=== PATIENT | male | born 1945 | race Caucasian/White ===

== ENCOUNTER 2018-02-25 09:11 | Inpatient (IN) | payer MEDICARE, OTHER ==
[2018-02-25 10:20] LABS: ADD MAN DIFF? NO
[2018-02-25] MEDS: ONDANSETRON 4 MG INJ IV (10:20)
[2018-02-25] MEDS: HYDROmorphONE 1 MG/5 ML IV SYRINGE IV (10:20)
[2018-02-25] MEDS: SOD CHLORIDE 0.9% 1,000 ML IV ×2 (10:21→15:33)
[2018-02-25 10:25] LABS: ABNORMAL IP MESSAGE 1; BASOPHILS % 0.7 % (0.0-2.0); EOSINOPHILS # 0.1 10^3/ul (0.0-0.5); EOSINOPHILS % 2.1 % (0.0-7.0); HEMATOCRIT 28.6 % (42.0-52.0); HEMOGLOBIN 9.8 g/dl (14.0-18.0); LYMPHOCYTES # 0.5 10^3/ul (0.8-2.9); LYMPHOCYTES % 7.9 % (15.0-51.0); MEAN CORPUSCULAR HEMOGLOBIN 29.2 pg (29.0-33.0); MEAN CORPUSCULAR HGB CONC 34.3 g/dl (32.0-37.0); MEAN CORPUSCULAR VOLUME 85.1 fl (82.0-101.0); MEAN PLATELET VOLUME 9.2 fl (7.4-10.4); MONOCYTE # 0.5 10^3/ul (0.3-0.9); MONOCYTES % 8.4 % (0.0-11.0); NEUTROPHIL # 4.9 10^3/ul (1.6-7.5); NEUTROPHILS % 80.6 % (39.0-77.0); PLATELET COUNT 212 10^3/UL (140-415); POSITIVE DIFF @See below; RED BLOOD COUNT 3.36 10^6/ul (4.70-6.10); RED CELL DISTRIBUTION WIDTH 12.4 % (11.5-14.5)
[2018-02-25 10:25] LABS: WHITE BLOOD COUNT 6.1 10^3/ul (4.8-10.8)
[2018-02-25 10:55] LABS: ALANINE AMINOTRANSFERASE 18 IU/L (13-69); ALBUMIN 3.3 g/dl (3.3-4.9); ALKALINE PHOSPHATASE 55 IU/L (42-121); ANION GAP 10 (8-16); ASPARTATE AMINO TRANSFERASE 33 IU/L (15-46); BILIRUBIN,INDIRECT 0.2 mg/dl (0-1.1); BILIRUBIN,TOTAL 0.2 mg/dl (0.2-1.3); BLOOD UREA NITROGEN 14 mg/dl (7-20); CARBON DIOXIDE 25 mmol/L (21-31); CHLORIDE 104 mmol/L (97-110); CREATININE 1.04 mg/dl (0.61-1.24); GLUCOSE 128 mg/dl (70-220); POTASSIUM 4.5 mmol/L (3.5-5.1); SODIUM 134 mmol/L (135-144); TOTAL PROTEIN 6.6 g/dl (6.1-8.1)
[2018-02-25 11:11] LABS: FREE T4 (FREE THYROXINE) 1.55 ng/dl (0.78-2.44)
[2018-02-25] MEDS: VANCOMYCIN 1 GM (PMX) 250 ML IVPB (12:27)
[2018-02-25] MEDS: METHYLPREDNISOLONE 125 MG INJ IV (13:20)
[2018-02-25] MEDS: CEFEPIME 1GM/50 ML (PMX) 50 ML IVPB (13:21)
[2018-02-25] MEDS ORDERED: ACETAMINOPHEN 325 MG TAB PO (14:30)
[2018-02-25] MEDS ORDERED: ONDANSETRON 4 MG INJ IV (14:30)
[2018-02-25] MEDS ORDERED: METOCLOPRAMIDE 10 MG INJ IV (15:30)
[2018-02-25] MEDS ORDERED: metFORMIN 500 MG TAB PO (15:30)
[2018-02-25] MEDS ORDERED: SODIUM CHLORIDE 0.9% 1L BAG IV (15:30)
[2018-02-25] MEDS ORDERED: MECLIZINE 25 MG TAB PO (15:30)
[2018-02-25] MEDS ORDERED: NACL 0.9% 3 ML SYG IV (15:30)
[2018-02-25] MEDS: AZITHROMYCIN 500MG/NS (PMX) 250 ML IV (16:33)
[2018-02-25] MEDS: ALBUTEROL/IPRATROPIUM (NEB) 3 ML AMP NEB ×2 (17:00→21:29)
[2018-02-25] MEDS: IPRATROPIUM (NEB) 0.5 MG/2.5 ML AMP NEB (17:00)
[2018-02-25] MEDS ORDERED: IODIXANOL LOCM 100 ML BTL (17:16)
[2018-02-25] MEDS ORDERED: SOD CHLORIDE 0.9% 100 ML (17:16)
[2018-02-25] MEDS: CEFTRIAXONE 1 GM/50 ML (PMX) 50 ML IVPB (19:01)
[2018-02-25] MEDS ORDERED: METHYLPREDNISOLONE 40 MG INJ (20:37)
[2018-02-25] MEDS: TAMSULOSIN (SR) 0.4 MG CAP PO (21:08)
[2018-02-25] MEDS: METHYLPREDNISOLONE 40 MG INJ IV (21:08)
[2018-02-25] MEDS: ATORVASTATIN 20 MG TAB PO (21:08)
[2018-02-26] MEDS: ALBUTEROL/IPRATROPIUM (NEB) 3 ML AMP NEB ×6 (00:29→21:22)
[2018-02-26] MEDS: DEXTROSE 5%-0.45% NACL 1,000 ML IV ×2 (00:43→19:40)
[2018-02-26] MEDS ORDERED: NITROGLYCERIN (SL) 0.4 MG TAB (01:42)
[2018-02-26] MEDS: NITROGLYCERIN (SL) 0.4 MG TAB SL ×3 (01:50→22:03)
[2018-02-26] MEDS ORDERED: morphine 2 MG INJ IV (02:00)
[2018-02-26] MEDS: morphine 2 MG INJ IV ×4 (02:05→21:25)
[2018-02-26] MEDS ORDERED: IPRATROPIUM (NEB) 0.5 MG/2.5 ML AMP NEB (02:30)
[2018-02-26 02:55] LABS: TROPONIN-I 0.758 ng/ml (0.00-0.12)
[2018-02-26] MEDS: ISOSORBIDE MONONITRATE(SR)30 MG TAB PO ×2 (04:00→05:57)
[2018-02-26] MEDS: PANTOPRAZOLE (EC) 40 MG TAB PO ×2 (05:56→18:00)
[2018-02-26] MEDS: METOPROLOL 50 MG TAB PO ×3 (05:56→21:27)
[2018-02-26] MEDS ORDERED: PANTOPRAZOLE (EC) 40 MG TAB PO (06:00)
[2018-02-26] MEDS: ASPIRIN (EC) 81 MG TAB PO ×2 (09:00→14:02)
[2018-02-26] MEDS: FOLIC ACID 1 MG TAB PO (09:00)
[2018-02-26] MEDS: CLOPIDOGREL 75 MG TAB PO ×2 (09:00→14:02)
[2018-02-26] MEDS: METHYLPREDNISOLONE 40 MG INJ IV ×3 (09:00→21:27)
[2018-02-26] MEDS: FERROUS SULFATE (EC) 325 MG TAB PO (09:00)
[2018-02-26 10:20] LABS: ADD MAN DIFF? NO
[2018-02-26 10:21] LABS: WHITE BLOOD COUNT 7.8 10^3/ul (4.8-10.8)
[2018-02-26 10:21] LABS: ABNORMAL IP MESSAGE 1; BASOPHILS % 0.1 % (0.0-2.0); HEMATOCRIT 26.4 % (42.0-52.0); HEMOGLOBIN 8.9 g/dl (14.0-18.0); LYMPHOCYTES # 0.6 10^3/ul (0.8-2.9); LYMPHOCYTES % 7.4 % (15.0-51.0); MEAN CORPUSCULAR HGB CONC 33.7 g/dl (32.0-37.0); MEAN PLATELET VOLUME 9.5 fl (7.4-10.4); MONOCYTE # 0.3 10^3/ul (0.3-0.9); NEUTROPHIL # 6.9 10^3/ul (1.6-7.5); NEUTROPHILS % 87.9 % (39.0-77.0); PLATELET COUNT 218 10^3/UL (140-415); POSITIVE DIFF @See below; RED BLOOD COUNT 3.07 10^6/ul (4.70-6.10); RED CELL DISTRIBUTION WIDTH 12.5 % (11.5-14.5)
[2018-02-26 10:32] LABS: HEMOGLOBIN A1C 5.6 % (0-5.9)
[2018-02-26 10:39] LABS: ALANINE AMINOTRANSFERASE 18 IU/L (13-69); ALBUMIN 3.4 g/dl (3.3-4.9); ALBUMIN/GLOBULIN RATIO 1.06; ALKALINE PHOSPHATASE 49 IU/L (42-121); ANION GAP 10 (8-16); ASPARTATE AMINO TRANSFERASE 27 IU/L (15-46); BILIRUBIN,INDIRECT 0.1 mg/dl (0-1.1); BILIRUBIN,TOTAL 0.1 mg/dl (0.2-1.3); BLOOD UREA NITROGEN 18 mg/dl (7-20); CALCIUM 9.3 mg/dl (8.4-10.2); CARBON DIOXIDE 26 mmol/L (21-31); CHLORIDE 110 mmol/L (97-110); CREATININE 1.04 mg/dl (0.61-1.24); GLUCOSE 151 mg/dl (70-220); POTASSIUM 4.8 mmol/L (3.5-5.1); SODIUM 141 mmol/L (135-144); TOTAL PROTEIN 6.6 g/dl (6.1-8.1)
[2018-02-26 10:41] LABS: INR 1.26; PARTIAL THROMBOPLASTIN TIME 34.3 Sec (25.0-35.0); PT RATIO 1.3
[2018-02-26 10:48] LABS: B-TYPE NATRIURETIC PEPTIDE 3030 PG/ML (0-125)
[2018-02-26] MEDS: LORAZEPAM 2 MG INJ IV (10:50)
[2018-02-26 10:56] LABS: TROPONIN-I 0.828 ng/ml (0.00-0.12)
[2018-02-26 11:10] LABS: THYROID STIMULATING HORMONE 0.777 MIU/L (0.465-4.680)
[2018-02-26 11:34] LABS: INR 1.23; PROTIME 15.7 Sec (11.9-14.9); PT RATIO 1.2
[2018-02-26 11:43] LABS: PARTIAL THROMBOPLASTIN TIME 37.3 Sec (25.0-35.0)
[2018-02-26 13:01] LABS: PLATELET COUNT 218 10^3/UL (140-415)
[2018-02-26] MEDS: DOCUSATE SODIUM 100 MG CAP PO ×2 (14:02→21:26)
[2018-02-26 14:41] LABS: TROPONIN-I 0.646 ng/ml (0.00-0.12)
[2018-02-26] MEDS: CEFTRIAXONE 1 GM/50 ML (PMX) 50 ML IVPB (19:02)
[2018-02-26] MEDS: AZITHROMYCIN 500MG/NS (PMX) 250 ML IV (19:40)
[2018-02-26 19:56] LABS: CREATINE KINASE 55 IU/L (23-200)
[2018-02-26 20:07] LABS: CK INDEX 3.4
[2018-02-26 20:08] LABS: CK-MB 1.87 ng/ml (0.0-2.4); TROPONIN-I 0.557 ng/ml (0.00-0.12)
[2018-02-26] MEDS: GUAIFENESIN/DM 5ML CUP PO (21:26)
[2018-02-26] MEDS: TAMSULOSIN (SR) 0.4 MG CAP PO (21:26)
[2018-02-26] MEDS: ATORVASTATIN 20 MG TAB PO (21:26)
[2018-02-27] MEDS: ALBUTEROL/IPRATROPIUM (NEB) 3 ML AMP NEB ×6 (01:00→21:22)
[2018-02-27] MEDS: PANTOPRAZOLE (EC) 40 MG TAB PO ×2 (06:19→18:18)
[2018-02-27 06:44] LABS: ADD MAN DIFF? NO
[2018-02-27 06:50] LABS: WHITE BLOOD COUNT 9.2 10^3/ul (4.8-10.8)
[2018-02-27 06:50] LABS: ABNORMAL IP MESSAGE 1; BASOPHILS % 0.1 % (0.0-2.0); HEMATOCRIT 26.8 % (42.0-52.0); LYMPHOCYTES # 0.5 10^3/ul (0.8-2.9); LYMPHOCYTES % 5.6 % (15.0-51.0); MEAN CORPUSCULAR HEMOGLOBIN 28.8 pg (29.0-33.0); MEAN CORPUSCULAR HGB CONC 33.6 g/dl (32.0-37.0); MEAN CORPUSCULAR VOLUME 85.9 fl (82.0-101.0); MEAN PLATELET VOLUME 9.6 fl (7.4-10.4); MONOCYTE # 0.2 10^3/ul (0.3-0.9); MONOCYTES % 1.9 % (0.0-11.0); NEUTROPHIL # 8.4 10^3/ul (1.6-7.5); NEUTROPHILS % 91.9 % (39.0-77.0); PLATELET COUNT 202 10^3/UL (140-415); POSITIVE DIFF @See below; RED BLOOD COUNT 3.12 10^6/ul (4.70-6.10); RED CELL DISTRIBUTION WIDTH 12.8 % (11.5-14.5)
[2018-02-27 07:14] LABS: CREATINE KINASE 60 IU/L (23-200)
[2018-02-27 07:18] LABS: ANION GAP 12 (8-16); BLOOD UREA NITROGEN 22 mg/dl (7-20); CALCIUM 9.5 mg/dl (8.4-10.2); CARBON DIOXIDE 25 mmol/L (21-31); CHLORIDE 110 mmol/L (97-110); CREATININE 0.99 mg/dl (0.61-1.24); GLUCOSE 162 mg/dl (70-220); SODIUM 142 mmol/L (135-144)
[2018-02-27 07:19] LABS: CHOL/HDL RATIO 2.8 RATIO; HDL CHOLESTEROL 32 mg/dl (31-75); LDL CHOLESTEROL,CALCULATED 44 mg/dl; TRIGLYCERIDES 75 mg/dl (0-149)
[2018-02-27 07:19] LABS: CHOLESTEROL 91 mg/dl (100-200)
[2018-02-27 07:20] LABS: CK INDEX 3.3
[2018-02-27 07:22] LABS: CK-MB 1.96 ng/ml (0.0-2.4)
[2018-02-27 07:24] LABS: INR 1.24; PROTIME 15.8 Sec (11.9-14.9); PT RATIO 1.2
[2018-02-27 07:25] LABS: PARTIAL THROMBOPLASTIN TIME 32.5 Sec (25.0-35.0)
[2018-02-27] MEDS ORDERED: ASPIRIN (EC) 81 MG TAB PO (09:00)
[2018-02-27] MEDS ORDERED: CLOPIDOGREL 75 MG TAB PO (09:00)
[2018-02-27] MEDS: ASPIRIN (EC) 325 MG TAB PO (09:49)
[2018-02-27] MEDS: ISOSORBIDE MONONITRATE(SR)30 MG TAB PO (09:49)
[2018-02-27] MEDS: DOCUSATE SODIUM 100 MG CAP PO ×2 (09:50→20:52)
[2018-02-27] MEDS: FOLIC ACID 1 MG TAB PO (09:51)
[2018-02-27] MEDS: CLOPIDOGREL 75 MG TAB PO (09:51)
[2018-02-27] MEDS: METOPROLOL 50 MG TAB PO ×2 (09:51→20:53)
[2018-02-27] MEDS: METHYLPREDNISOLONE 40 MG INJ IV ×2 (09:51→20:50)
[2018-02-27] MEDS: FERROUS SULFATE (EC) 325 MG TAB PO (09:51)
[2018-02-27] MEDS: FUROSEMIDE 20 MG INJ IV (09:52)
[2018-02-27] MEDS: CEFTRIAXONE 1 GM/50 ML (PMX) 50 ML IVPB (16:07)
[2018-02-27] MEDS: AZITHROMYCIN 500MG/NS (PMX) 250 ML IV (17:17)
[2018-02-27] MEDS: ATORVASTATIN 80 MG TAB PO (20:52)
[2018-02-27] MEDS: TAMSULOSIN (SR) 0.4 MG CAP PO (20:52)
[2018-02-28] MEDS: ALBUTEROL/IPRATROPIUM (NEB) 3 ML AMP NEB ×6 (01:51→20:39)
[2018-02-28] MEDS: PANTOPRAZOLE (EC) 40 MG TAB PO ×2 (06:30→17:14)
[2018-02-28 07:18] LABS: ADD MAN DIFF? NO
[2018-02-28 07:27] LABS: ABNORMAL IP MESSAGE 1; HEMOGLOBIN 8.7 g/dl (14.0-18.0); LYMPHOCYTES # 0.6 10^3/ul (0.8-2.9); LYMPHOCYTES % 7.3 % (15.0-51.0); MEAN CORPUSCULAR HEMOGLOBIN 28.9 pg (29.0-33.0); MEAN CORPUSCULAR HGB CONC 33.5 g/dl (32.0-37.0); MEAN CORPUSCULAR VOLUME 86.4 fl (82.0-101.0); MEAN PLATELET VOLUME 9.9 fl (7.4-10.4); MONOCYTE # 0.3 10^3/ul (0.3-0.9); MONOCYTES % 3.5 % (0.0-11.0); NEUTROPHIL # 7.1 10^3/ul (1.6-7.5); NEUTROPHILS % 88.5 % (39.0-77.0); PLATELET COUNT 194 10^3/UL (140-415); POSITIVE DIFF @See below; RED BLOOD COUNT 3.01 10^6/ul (4.70-6.10); RED CELL DISTRIBUTION WIDTH 12.5 % (11.5-14.5)
[2018-02-28 07:50] LABS: PHOSPHORUS 4.2 mg/dl (2.5-4.9)
[2018-02-28 07:50] LABS: MAGNESIUM 2.1 mg/dl (1.7-2.5)
[2018-02-28 07:52] LABS: ANION GAP 15 (8-16); BLOOD UREA NITROGEN 24 mg/dl (7-20); CALCIUM 9.1 mg/dl (8.4-10.2); CARBON DIOXIDE 23 mmol/L (21-31); CHLORIDE 107 mmol/L (97-110); CREATININE 1.02 mg/dl (0.61-1.24); GLUCOSE 158 mg/dl (70-220); POTASSIUM 4.4 mmol/L (3.5-5.1); SODIUM 141 mmol/L (135-144)
[2018-02-28 07:59] LABS: INR 1.45; PROTIME 17.9 Sec (11.9-14.9); PT RATIO 1.4
[2018-02-28 08:00] LABS: PARTIAL THROMBOPLASTIN TIME 29.2 Sec (25.0-35.0)
[2018-02-28] MEDS: DOCUSATE SODIUM 100 MG CAP PO ×2 (08:23→21:03)
[2018-02-28] MEDS: METHYLPREDNISOLONE 40 MG INJ IV ×2 (08:23→21:03)
[2018-02-28] MEDS: FUROSEMIDE 20 MG INJ IV (08:23)
[2018-02-28] MEDS: ISOSORBIDE MONONITRATE(SR)30 MG TAB PO (08:24)
[2018-02-28] MEDS: FERROUS SULFATE (EC) 325 MG TAB PO (08:24)
[2018-02-28] MEDS: ASPIRIN (EC) 325 MG TAB PO (08:24)
[2018-02-28] MEDS: FOLIC ACID 1 MG TAB PO (08:24)
[2018-02-28] MEDS: METOPROLOL 50 MG TAB PO ×2 (08:25→21:04)
[2018-02-28] MEDS: CLOPIDOGREL 75 MG TAB PO (08:25)
[2018-02-28] MEDS: ACETYLCYSTEINE 20% 4 ML VIAL NEB ×3 (13:11→20:39)
[2018-02-28] MEDS: ACETAMINOPHEN 325 MG TAB PO (16:50)
[2018-02-28] MEDS: AZITHROMYCIN 500MG/NS (PMX) 250 ML IV (16:50)
[2018-02-28] MEDS: CEFTRIAXONE 1 GM/50 ML (PMX) 50 ML IVPB (16:50)
[2018-02-28] MEDS: TAMSULOSIN (SR) 0.4 MG CAP PO (21:03)
[2018-02-28] MEDS: ATORVASTATIN 80 MG TAB PO (21:03)
[2018-02-28] MEDS: ZOLPIDEM 5 MG TAB PO (21:06)
[2018-03-01] MEDS: ALBUTEROL/IPRATROPIUM (NEB) 3 ML AMP NEB ×6 (01:00→21:24)
[2018-03-01] MEDS: ACETYLCYSTEINE 20% 4 ML VIAL NEB ×5 (01:00→16:37)
[2018-03-01] MEDS: morphine 2 MG INJ IV (02:03)
[2018-03-01] MEDS: NITROGLYCERIN (SL) 0.4 MG TAB SL ×3 (02:53→03:06)
[2018-03-01] MEDS: LIDOCAINE/MYLANTA 40 ML BTL PO (06:10)
[2018-03-01] MEDS: PANTOPRAZOLE (EC) 40 MG TAB PO ×2 (06:10→18:02)
[2018-03-01 08:11] LABS: ADD MAN DIFF? NO
[2018-03-01 08:18] LABS: ABNORMAL IP MESSAGE 1; HEMATOCRIT 27.5 % (42.0-52.0); HEMOGLOBIN 9.5 g/dl (14.0-18.0); LYMPHOCYTES # 0.4 10^3/ul (0.8-2.9); LYMPHOCYTES % 5.6 % (15.0-51.0); MEAN CORPUSCULAR HEMOGLOBIN 29.1 pg (29.0-33.0); MEAN CORPUSCULAR HGB CONC 34.5 g/dl (32.0-37.0); MEAN CORPUSCULAR VOLUME 84.4 fl (82.0-101.0); MEAN PLATELET VOLUME 9.9 fl (7.4-10.4); MONOCYTE # 0.5 10^3/ul (0.3-0.9); MONOCYTES % 6.5 % (0.0-11.0); NEUTROPHIL # 6.7 10^3/ul (1.6-7.5); NUCLEATED RED BLOOD CELLS% 0.3 /100WBC (0.0-0.0); PLATELET COUNT 160 10^3/UL (140-415); POSITIVE DIFF @See below; RED BLOOD COUNT 3.26 10^6/ul (4.70-6.10); RED CELL DISTRIBUTION WIDTH 12.5 % (11.5-14.5)
[2018-03-01 08:18] LABS: WHITE BLOOD COUNT 7.7 10^3/ul (4.8-10.8)
[2018-03-01] MEDS: FOLIC ACID 1 MG TAB PO (08:18)
[2018-03-01] MEDS: FERROUS SULFATE (EC) 325 MG TAB PO (08:18)
[2018-03-01] MEDS: ASPIRIN (EC) 325 MG TAB PO (08:18)
[2018-03-01] MEDS: DOCUSATE SODIUM 100 MG CAP PO ×2 (08:18→22:37)
[2018-03-01] MEDS: METOPROLOL 50 MG TAB PO ×2 (08:18→22:36)
[2018-03-01] MEDS: CLOPIDOGREL 75 MG TAB PO (08:18)
[2018-03-01] MEDS: ISOSORBIDE MONONITRATE(SR)30 MG TAB PO (08:19)
[2018-03-01] MEDS: FUROSEMIDE 20 MG INJ IV (08:19)
[2018-03-01] MEDS: METHYLPREDNISOLONE 40 MG INJ IV (08:19)
[2018-03-01] MEDS: HYDROmorphONE 0.5 MG/0.5 ML SYG IV (08:20)
[2018-03-01 08:36] LABS: ANION GAP 14 (8-16); BLOOD UREA NITROGEN 27 mg/dl (7-20); CALCIUM 8.9 mg/dl (8.4-10.2); CARBON DIOXIDE 25 mmol/L (21-31); CHLORIDE 105 mmol/L (97-110); CREATININE 0.99 mg/dl (0.61-1.24); GLUCOSE 170 mg/dl (70-220); POTASSIUM 4.2 mmol/L (3.5-5.1); SODIUM 140 mmol/L (135-144)
[2018-03-01 08:37] LABS: CREATINE KINASE 26 IU/L (23-200); INR 1.76; PARTIAL THROMBOPLASTIN TIME 34.2 Sec (25.0-35.0); PROTIME 20.9 Sec (11.9-14.9); PT RATIO 1.6
[2018-03-01 08:48] LABS: CK INDEX 4.6; CK-MB 1.19 ng/ml (0.0-2.4)
[2018-03-01 08:50] LABS: TROPONIN-I 0.411 ng/ml (0.00-0.12)
[2018-03-01] MEDS: RANOLAZINE (SR) 500 MG TAB PO ×2 (12:58→22:37)
[2018-03-01] MEDS: CEFTRIAXONE 1 GM/50 ML (PMX) 50 ML IVPB (18:03)
[2018-03-01] MEDS: ATORVASTATIN 80 MG TAB PO (22:37)
[2018-03-01] MEDS: TAMSULOSIN (SR) 0.4 MG CAP PO (22:37)
[2018-03-01] MEDS: PHYTONADIONE 5 MG in DEXTROSE 5% 50 ML IVPB (22:38)
[2018-03-02] MEDS: ALBUTEROL/IPRATROPIUM (NEB) 3 ML AMP NEB ×6 (01:00→20:09)
[2018-03-02] MEDS: PANTOPRAZOLE (EC) 40 MG TAB PO ×2 (05:04→17:38)
[2018-03-02] MEDS: ACETAMINOPHEN 325 MG TAB PO ×2 (05:11→18:18)
[2018-03-02 07:11] LABS: ADD MAN DIFF? NO
[2018-03-02] MEDS: HYDROmorphONE 0.5 MG/0.5 ML SYG IV (07:18)
[2018-03-02 07:24] LABS: WHITE BLOOD COUNT 8.3 10^3/ul (4.8-10.8)
[2018-03-02 07:24] LABS: BASOPHILS % 0.1 % (0.0-2.0); EOSINOPHILS # 0.2 10^3/ul (0.0-0.5); HEMATOCRIT 27.4 % (42.0-52.0); HEMOGLOBIN 9.5 g/dl (14.0-18.0); LYMPHOCYTES # 0.8 10^3/ul (0.8-2.9); LYMPHOCYTES % 9.3 % (15.0-51.0); MEAN CORPUSCULAR HEMOGLOBIN 29.1 pg (29.0-33.0); MEAN CORPUSCULAR HGB CONC 34.7 g/dl (32.0-37.0); MEAN PLATELET VOLUME 9.8 fl (7.4-10.4); MONOCYTE # 0.8 10^3/ul (0.3-0.9); MONOCYTES % 9.9 % (0.0-11.0); NEUTROPHIL # 6.5 10^3/ul (1.6-7.5); NEUTROPHILS % 78.1 % (39.0-77.0); PLATELET COUNT 133 10^3/UL (140-415); RED BLOOD COUNT 3.26 10^6/ul (4.70-6.10); RED CELL DISTRIBUTION WIDTH 12.6 % (11.5-14.5)
[2018-03-02 07:30] LABS: INR 2.15; PROTIME 24.5 Sec (11.9-14.9); PT RATIO 1.9
[2018-03-02 07:31] LABS: PARTIAL THROMBOPLASTIN TIME 41.1 Sec (25.0-35.0)
[2018-03-02 07:48] LABS: ANION GAP 11 (8-16); BLOOD UREA NITROGEN 29 mg/dl (7-20); CARBON DIOXIDE 28 mmol/L (21-31); CHLORIDE 105 mmol/L (97-110); CREATININE 1.08 mg/dl (0.61-1.24); GLUCOSE 109 mg/dl (70-220); POTASSIUM 4.3 mmol/L (3.5-5.1); SODIUM 140 mmol/L (135-144)
[2018-03-02 07:50] LABS: MAGNESIUM 2.1 mg/dl (1.7-2.5)
[2018-03-02 07:50] LABS: PHOSPHORUS 3.6 mg/dl (2.5-4.9)
[2018-03-02 07:53] LABS: CREATINE KINASE 22 IU/L (23-200)
[2018-03-02 07:59] LABS: CK INDEX 5.6
[2018-03-02 08:12] LABS: CK-MB 1.24 ng/ml (0.0-2.4); TROPONIN-I 0.522 ng/ml (0.00-0.12)
[2018-03-02] MEDS: FERROUS SULFATE (EC) 325 MG TAB PO (09:22)
[2018-03-02] MEDS: FOLIC ACID 1 MG TAB PO (09:22)
[2018-03-02] MEDS: CLOPIDOGREL 75 MG TAB PO (09:22)
[2018-03-02] MEDS: ASPIRIN (EC) 325 MG TAB PO (09:22)
[2018-03-02] MEDS: RANOLAZINE (SR) 500 MG TAB PO ×2 (09:22→21:21)
[2018-03-02] MEDS: DOCUSATE SODIUM 100 MG CAP PO ×2 (09:22→21:20)
[2018-03-02] MEDS: METOPROLOL 50 MG TAB PO ×2 (09:22→21:21)
[2018-03-02] MEDS: ISOSORBIDE MONONITRATE(SR)30 MG TAB PO (09:23)
[2018-03-02] MEDS: FUROSEMIDE 20 MG INJ IV (09:23)
[2018-03-02] MEDS: METHYLPREDNISOLONE 40 MG INJ IV (09:23)
[2018-03-02] MEDS: CEFTRIAXONE 1 GM/50 ML (PMX) 50 ML IVPB (17:38)
[2018-03-02] MEDS ORDERED: NITROGLYCERIN 2% 1 GM OINT PKT TD (18:00)
[2018-03-02] MEDS: NITROGLYCERIN (SL) 0.4 MG TAB SL (18:18)
[2018-03-02] MEDS: NITROGLYCERIN 0.2 MG/HR PATCH TRANSDERM (18:57)
[2018-03-02 19:56] LABS: CK-MB 2.94 ng/ml (0.0-2.4)
[2018-03-02 20:34] LABS: CREATINE KINASE 33 IU/L (23-200)
[2018-03-02 20:47] LABS: CK INDEX 8.5
[2018-03-02 20:53] LABS: CK-MB 2.82 ng/ml (0.0-2.4)
[2018-03-02] MEDS: TAMSULOSIN (SR) 0.4 MG CAP PO (21:20)
[2018-03-02] MEDS: ATORVASTATIN 80 MG TAB PO (21:20)
[2018-03-02] MEDS: ALPRAZOLAM 0.25 MG TAB PO (21:48)
[2018-03-03] MEDS: ALBUTEROL/IPRATROPIUM (NEB) 3 ML AMP NEB ×6 (01:31→21:18)
[2018-03-03] MEDS: ACETAMINOPHEN 325 MG TAB PO ×2 (04:28→09:11)
[2018-03-03] MEDS: PANTOPRAZOLE (EC) 40 MG TAB PO ×2 (06:51→17:06)
[2018-03-03 08:40] LABS: ADD MAN DIFF? NO
[2018-03-03 08:45] LABS: ABNORMAL IP MESSAGE 1; EOSINOPHILS # 0.2 10^3/ul (0.0-0.5); EOSINOPHILS % 1.8 % (0.0-7.0); HEMATOCRIT 28.1 % (42.0-52.0); HEMOGLOBIN 9.7 g/dl (14.0-18.0); LYMPHOCYTES # 0.8 10^3/ul (0.8-2.9); LYMPHOCYTES % 9.9 % (15.0-51.0); MEAN CORPUSCULAR HEMOGLOBIN 28.9 pg (29.0-33.0); MEAN CORPUSCULAR HGB CONC 34.5 g/dl (32.0-37.0); MEAN CORPUSCULAR VOLUME 83.6 fl (82.0-101.0); MEAN PLATELET VOLUME 9.7 fl (7.4-10.4); MONOCYTE # 0.8 10^3/ul (0.3-0.9); MONOCYTES % 9.8 % (0.0-11.0); NEUTROPHIL # 6.6 10^3/ul (1.6-7.5); NEUTROPHILS % 78.1 % (39.0-77.0); PLATELET COUNT 84 10^3/UL (140-415); POSITIVE DIFF @See below; RED BLOOD COUNT 3.36 10^6/ul (4.70-6.10); RED CELL DISTRIBUTION WIDTH 12.3 % (11.5-14.5)
[2018-03-03 08:45] LABS: WHITE BLOOD COUNT 8.4 10^3/ul (4.8-10.8)
[2018-03-03] MEDS ORDERED: NITROGLYCERIN 0.2 MG/HR PATCH TRANSDERM (09:00)
[2018-03-03 09:01] LABS: CHLORIDE 103 mmol/L (97-110)
[2018-03-03 09:03] LABS: ANION GAP 8 (8-16); BLOOD UREA NITROGEN 29 mg/dl (7-20); CALCIUM 8.7 mg/dl (8.4-10.2); CARBON DIOXIDE 29 mmol/L (21-31); CREATININE 1.08 mg/dl (0.61-1.24); GLUCOSE 122 mg/dl (70-220); POTASSIUM 3.7 mmol/L (3.5-5.1); SODIUM 136 mmol/L (135-144)
[2018-03-03] MEDS: METHYLPREDNISOLONE 40 MG INJ IV (09:08)
[2018-03-03] MEDS: FUROSEMIDE 20 MG INJ IV (09:08)
[2018-03-03] MEDS: FERROUS SULFATE (EC) 325 MG TAB PO (09:10)
[2018-03-03] MEDS: ASPIRIN (EC) 325 MG TAB PO (09:10)
[2018-03-03] MEDS: DOCUSATE SODIUM 100 MG CAP PO ×3 (09:10→20:57)
[2018-03-03] MEDS: FOLIC ACID 1 MG TAB PO (09:10)
[2018-03-03] MEDS: CLOPIDOGREL 75 MG TAB PO (09:10)
[2018-03-03] MEDS: MAGNESIUM HYDROXIDE 30ML CUP PO ×2 (09:11→22:37)
[2018-03-03] MEDS: RANOLAZINE (SR) 500 MG TAB PO ×2 (09:11→21:42)
[2018-03-03] MEDS: METOPROLOL 50 MG TAB PO ×2 (09:12→20:57)
[2018-03-03] MEDS: NITROGLYCERIN 0.2 MG/HR PATCH TRANSDERM (09:28)
[2018-03-03 16:26] LABS: ADD MAN DIFF? NO
[2018-03-03 16:28] LABS: ABNORMAL IP MESSAGE 1; EOSINOPHILS % 0.1 % (0.0-7.0); HEMATOCRIT 28.3 % (42.0-52.0); HEMOGLOBIN 9.8 g/dl (14.0-18.0); LYMPHOCYTES # 0.7 10^3/ul (0.8-2.9); LYMPHOCYTES % 9.1 % (15.0-51.0); MEAN CORPUSCULAR HEMOGLOBIN 29.1 pg (29.0-33.0); MEAN CORPUSCULAR HGB CONC 34.6 g/dl (32.0-37.0); MONOCYTE # 0.2 10^3/ul (0.3-0.9); MONOCYTES % 2.5 % (0.0-11.0); NEUTROPHIL # 6.4 10^3/ul (1.6-7.5); NEUTROPHILS % 87.7 % (39.0-77.0); PLATELET COUNT 80 10^3/UL (140-415); POSITIVE DIFF @See below; RED BLOOD COUNT 3.37 10^6/ul (4.70-6.10); RED CELL DISTRIBUTION WIDTH 12.5 % (11.5-14.5)
[2018-03-03 16:28] LABS: WHITE BLOOD COUNT 7.2 10^3/ul (4.8-10.8)
[2018-03-03 16:50] LABS: ANION GAP 9 (8-16); BLOOD UREA NITROGEN 31 mg/dl (7-20); CALCIUM 8.5 mg/dl (8.4-10.2); CARBON DIOXIDE 29 mmol/L (21-31); CHLORIDE 98 mmol/L (97-110); CREATININE 1.17 mg/dl (0.61-1.24); GLUCOSE 224 mg/dl (70-220); POTASSIUM 4.4 mmol/L (3.5-5.1); SODIUM 132 mmol/L (135-144)
[2018-03-03] MEDS: CEFTRIAXONE 1 GM/50 ML (PMX) 50 ML IVPB (17:05)
[2018-03-03] MEDS: TAMSULOSIN (SR) 0.4 MG CAP PO (20:58)
[2018-03-03] MEDS: ATORVASTATIN 80 MG TAB PO (20:58)
[2018-03-03] MEDS: ALPRAZOLAM 0.25 MG TAB PO (22:38)
[2018-03-04] MEDS: ALBUTEROL/IPRATROPIUM (NEB) 3 ML AMP NEB ×7 (00:48→20:35)
[2018-03-04] MEDS: OXYCODONE/ACETAMINOPHEN (5/325) TAB PO (01:53)
[2018-03-04] MEDS: ZOLPIDEM 5 MG TAB PO (02:36)
[2018-03-04] MEDS: NITROGLYCERIN (SL) 0.4 MG TAB SL ×3 (03:27→04:01)
[2018-03-04] MEDS: morphine 2 MG INJ IV ×2 (04:01→05:11)
[2018-03-04 04:56] LABS: ADD MAN DIFF? NO
[2018-03-04 04:59] LABS: ABNORMAL IP MESSAGE 1; BASOPHILS % 0.1 % (0.0-2.0); EOSINOPHILS # 0.1 10^3/ul (0.0-0.5); EOSINOPHILS % 1.2 % (0.0-7.0); HEMATOCRIT 28.3 % (42.0-52.0); HEMOGLOBIN 9.7 g/dl (14.0-18.0); LYMPHOCYTES % 10.7 % (15.0-51.0); MEAN CORPUSCULAR HEMOGLOBIN 28.5 pg (29.0-33.0); MEAN CORPUSCULAR HGB CONC 34.3 g/dl (32.0-37.0); MEAN CORPUSCULAR VOLUME 83.2 fl (82.0-101.0); MEAN PLATELET VOLUME 10.6 fl (7.4-10.4); MONOCYTE # 0.9 10^3/ul (0.3-0.9); MONOCYTES % 10.1 % (0.0-11.0); NEUTROPHIL # 7.2 10^3/ul (1.6-7.5); NEUTROPHILS % 77.5 % (39.0-77.0); PLATELET COUNT 86 10^3/UL (140-415); POSITIVE DIFF @See below; RED CELL DISTRIBUTION WIDTH 12.5 % (11.5-14.5)
[2018-03-04 04:59] LABS: WHITE BLOOD COUNT 9.3 10^3/ul (4.8-10.8)
[2018-03-04 05:22] LABS: ANION GAP 8 (8-16); BLOOD UREA NITROGEN 32 mg/dl (7-20); CALCIUM 8.7 mg/dl (8.4-10.2); CARBON DIOXIDE 31 mmol/L (21-31); CHLORIDE 103 mmol/L (97-110); CREATININE 1.12 mg/dl (0.61-1.24); GLUCOSE 132 mg/dl (70-220); POTASSIUM 3.6 mmol/L (3.5-5.1); SODIUM 138 mmol/L (135-144)
[2018-03-04] MEDS: PANTOPRAZOLE (EC) 40 MG TAB PO ×2 (06:11→17:32)
[2018-03-04] MEDS: FUROSEMIDE 20 MG INJ IV (08:37)
[2018-03-04] MEDS: METHYLPREDNISOLONE 40 MG INJ IV (08:37)
[2018-03-04] MEDS: NITROGLYCERIN 0.2 MG/HR PATCH TRANSDERM (08:38)
[2018-03-04] MEDS: FERROUS SULFATE (EC) 325 MG TAB PO (09:00)
[2018-03-04] MEDS: DOCUSATE SODIUM 100 MG CAP PO ×2 (09:00→20:27)
[2018-03-04] MEDS: CLOPIDOGREL 75 MG TAB PO (09:00)
[2018-03-04] MEDS: RANOLAZINE (SR) 500 MG TAB PO ×2 (09:00→20:26)
[2018-03-04] MEDS ORDERED: ASPIRIN (EC) 81 MG TAB PO (09:00)
[2018-03-04] MEDS: METOPROLOL 50 MG TAB PO ×2 (09:00→20:55)
[2018-03-04] MEDS: FOLIC ACID 1 MG TAB PO (09:00)
[2018-03-04] MEDS: SOD CHLORIDE 0.9% 1,000 ML IV (12:21)
[2018-03-04] MEDS ORDERED: MIDAZOLAM 1 MG/ML 2 ML INJ (13:02)
[2018-03-04] MEDS ORDERED: FENTAnyl 50 MCG/ML VIAL (13:02)
[2018-03-04] MEDS: ISOSORBIDE MONONITRATE(SR)30 MG TAB PO (13:30)
[2018-03-04] MEDS: LIDOCAINE 4% SOLUTION 50 ML BTL MT (13:47)
[2018-03-04] MEDS: FENTAnyl 50 MCG/ML VIAL IV (13:48)
[2018-03-04] MEDS: MIDAZOLAM 1 MG/ML 2 ML INJ IV ×2 (13:49→13:55)
[2018-03-04] MEDS: CEFTRIAXONE 1 GM/50 ML (PMX) 50 ML IVPB (17:32)
[2018-03-04] MEDS: TAMSULOSIN (SR) 0.4 MG CAP PO (20:26)
[2018-03-04] MEDS: ATORVASTATIN 80 MG TAB PO (20:26)
[2018-03-04] MEDS: ALPRAZOLAM 0.25 MG TAB PO (20:27)
[2018-03-04] MEDS: APIXABAN 5 MG TABLET PO (20:27)
[2018-03-05] MEDS: ALBUTEROL/IPRATROPIUM (NEB) 3 ML AMP NEB ×6 (00:35→20:14)
[2018-03-05] MEDS: PANTOPRAZOLE (EC) 40 MG TAB PO ×2 (05:47→18:29)
[2018-03-05] MEDS: SOD CHLORIDE 0.9% 1,000 ML IV (05:47)
[2018-03-05 06:28] LABS: ADD MAN DIFF? NO
[2018-03-05 06:39] LABS: WHITE BLOOD COUNT 8.7 10^3/ul (4.8-10.8)
[2018-03-05 06:39] LABS: ABNORMAL IP MESSAGE 1; BASOPHILS % 0.2 % (0.0-2.0); EOSINOPHILS # 0.2 10^3/ul (0.0-0.5); EOSINOPHILS % 2.2 % (0.0-7.0); HEMATOCRIT 28.1 % (42.0-52.0); HEMOGLOBIN 9.6 g/dl (14.0-18.0); LYMPHOCYTES # 0.9 10^3/ul (0.8-2.9); LYMPHOCYTES % 10.5 % (15.0-51.0); MEAN CORPUSCULAR HEMOGLOBIN 29.3 pg (29.0-33.0); MEAN CORPUSCULAR HGB CONC 34.2 g/dl (32.0-37.0); MEAN CORPUSCULAR VOLUME 85.7 fl (82.0-101.0); MEAN PLATELET VOLUME 11.1 fl (7.4-10.4); MONOCYTE # 0.9 10^3/ul (0.3-0.9); MONOCYTES % 10.7 % (0.0-11.0); NEUTROPHIL # 6.6 10^3/ul (1.6-7.5); NEUTROPHILS % 75.8 % (39.0-77.0); PLATELET COUNT 70 10^3/UL (140-415); POSITIVE DIFF @See below; RED BLOOD COUNT 3.28 10^6/ul (4.70-6.10); RED CELL DISTRIBUTION WIDTH 12.9 % (11.5-14.5)
[2018-03-05 07:10] LABS: ALANINE AMINOTRANSFERASE 21 IU/L (13-69); ALBUMIN 3.3 g/dl (3.3-4.9); ALKALINE PHOSPHATASE 48 IU/L (42-121); ANION GAP 14 (8-16); ASPARTATE AMINO TRANSFERASE 49 IU/L (15-46); BILIRUBIN,INDIRECT 0.2 mg/dl (0-1.1); BILIRUBIN,TOTAL 0.2 mg/dl (0.2-1.3); BLOOD UREA NITROGEN 27 mg/dl (7-20); CALCIUM 8.6 mg/dl (8.4-10.2); CARBON DIOXIDE 27 mmol/L (21-31); CHLORIDE 102 mmol/L (97-110); CREATININE 1.16 mg/dl (0.61-1.24); GLUCOSE 134 mg/dl (70-220); POTASSIUM 3.7 mmol/L (3.5-5.1); SODIUM 139 mmol/L (135-144); TOTAL PROTEIN 6.3 g/dl (6.1-8.1)
[2018-03-05] MEDS: METHYLPREDNISOLONE 40 MG INJ IV (09:01)
[2018-03-05] MEDS: DOCUSATE SODIUM 100 MG CAP PO ×2 (09:02→20:39)
[2018-03-05] MEDS: RANOLAZINE (SR) 500 MG TAB PO ×2 (09:02→22:20)
[2018-03-05] MEDS: FUROSEMIDE 20 MG INJ IV (09:02)
[2018-03-05] MEDS: FOLIC ACID 1 MG TAB PO (09:02)
[2018-03-05] MEDS: FERROUS SULFATE (EC) 325 MG TAB PO (09:02)
[2018-03-05] MEDS: ISOSORBIDE MONONITRATE(SR)30 MG TAB PO (09:03)
[2018-03-05] MEDS: NITROGLYCERIN 0.2 MG/HR PATCH TRANSDERM (09:03)
[2018-03-05] MEDS: METOPROLOL 50 MG TAB PO ×2 (09:04→20:39)
[2018-03-05 10:31] LABS: HEMATOCRIT 31.4 % (42.0-52.0); HEMOGLOBIN 10.6 g/dl (14.0-18.0)
[2018-03-05 10:59] LABS: INR 1.77; PT RATIO 1.6
[2018-03-05] MEDS: BISACODYL 10 MG SUPP PR (12:36)
[2018-03-05] MEDS: FAMOTIDINE 20 MG TAB PO ×2 (13:02→20:39)
[2018-03-05 13:20] LABS: LACTATE DEHYDROGENASE 1775 IU/L (313-618)
[2018-03-05] MEDS ORDERED: GLUCOSE GEL 15 GRAM TUBE BUCCAL (13:30)
[2018-03-05] MEDS ORDERED: DEXTROSE 50% 50 ML SYRINGE IV ×2 (13:30)
[2018-03-05] MEDS ORDERED: GLUCAGON 1 MG INJ IM (13:30)
[2018-03-05] MEDS ORDERED: GLUCOSE GEL 15 GRAM TUBE PO ×2 (13:30)
[2018-03-05] MEDS: NA PHOSPHATE/BIPHOS 133 ML ENEMA PR (14:00)
[2018-03-05] MEDS: morphine 2 MG INJ IV (16:46)
[2018-03-05] MEDS: INSULIN ASPART [NOVOLOG] 3 ML PEN SC ×2 (17:20→20:49)
[2018-03-05] MEDS: ACETAMINOPHEN 325 MG TAB PO (19:41)
[2018-03-05] MEDS: OXYCODONE/ACETAMINOPHEN (5/325) TAB PO (20:38)
[2018-03-05] MEDS: ATORVASTATIN 80 MG TAB PO (20:39)
[2018-03-05] MEDS: TAMSULOSIN (SR) 0.4 MG CAP PO (20:40)
[2018-03-05] MEDS: APIXABAN 5 MG TABLET PO (20:40)
[2018-03-05] MEDS ORDERED: HYDROmorphONE 0.5 MG/0.5 ML SYG IV (22:00)
[2018-03-05] MEDS: ALPRAZOLAM 0.25 MG TAB PO (22:36)
[2018-03-06] MEDS: ZOLPIDEM 5 MG TAB PO ×2 (00:35→20:58)
[2018-03-06] MEDS: ALBUTEROL/IPRATROPIUM (NEB) 3 ML AMP NEB ×6 (01:02→20:42)
[2018-03-06 05:18] LABS: ADD MAN DIFF? NO
[2018-03-06 05:20] LABS: WHITE BLOOD COUNT 9.5 10^3/ul (4.8-10.8)
[2018-03-06 05:20] LABS: ABNORMAL IP MESSAGE 1; BASOPHILS % 0.1 % (0.0-2.0); EOSINOPHILS # 0.2 10^3/ul (0.0-0.5); HEMATOCRIT 28.7 % (42.0-52.0); HEMOGLOBIN 9.7 g/dl (14.0-18.0); MEAN CORPUSCULAR HEMOGLOBIN 28.7 pg (29.0-33.0); MEAN CORPUSCULAR HGB CONC 33.8 g/dl (32.0-37.0); MEAN CORPUSCULAR VOLUME 84.9 fl (82.0-101.0); MONOCYTE # 1.1 10^3/ul (0.3-0.9); MONOCYTES % 11.6 % (0.0-11.0); NEUTROPHIL # 7.1 10^3/ul (1.6-7.5); NEUTROPHILS % 74.8 % (39.0-77.0); PLATELET COUNT 58 10^3/UL (140-415); POSITIVE DIFF @See below; RED BLOOD COUNT 3.38 10^6/ul (4.70-6.10); RED CELL DISTRIBUTION WIDTH 13.1 % (11.5-14.5)
[2018-03-06 05:37] LABS: MAGNESIUM 2.2 mg/dl (1.7-2.5)
[2018-03-06 05:37] LABS: PHOSPHORUS 3.8 mg/dl (2.5-4.9)
[2018-03-06] MEDS: PANTOPRAZOLE (EC) 40 MG TAB PO (05:50)
[2018-03-06 05:56] LABS: ALANINE AMINOTRANSFERASE 28 IU/L (13-69); ALBUMIN 3.2 g/dl (3.3-4.9); ALBUMIN/GLOBULIN RATIO 1.03; ALKALINE PHOSPHATASE 48 IU/L (42-121); ANION GAP 9 (8-16); ASPARTATE AMINO TRANSFERASE 43 IU/L (15-46); BILIRUBIN,INDIRECT 0.3 mg/dl (0-1.1); BILIRUBIN,TOTAL 0.3 mg/dl (0.2-1.3); BLOOD UREA NITROGEN 26 mg/dl (7-20); CARBON DIOXIDE 29 mmol/L (21-31); CHLORIDE 102 mmol/L (97-110); CREATININE 1.09 mg/dl (0.61-1.24); GLUCOSE 123 mg/dl (70-220); POTASSIUM 4.3 mmol/L (3.5-5.1); SODIUM 136 mmol/L (135-144); TOTAL PROTEIN 6.3 g/dl (6.1-8.1)
[2018-03-06] MEDS: APIXABAN 5 MG TABLET PO (08:50)
[2018-03-06] MEDS ORDERED: NPH, HUMAN INSULIN ISOPHANE 3ML VIAL SC (09:00)
[2018-03-06] MEDS ORDERED: HEPARIN 1000 UNITS/ML 10 ML INJ IV (09:00)
[2018-03-06 09:45] LABS: CREATINE KINASE 34 IU/L (23-200)
[2018-03-06 09:52] LABS: CK-MB 1.01 ng/ml (0.0-2.4)
[2018-03-06] MEDS: RANOLAZINE (SR) 500 MG TAB PO ×2 (11:00→20:57)
[2018-03-06] MEDS: FUROSEMIDE 20 MG INJ IV (11:00)
[2018-03-06] MEDS: DOCUSATE SODIUM 100 MG CAP PO ×2 (11:00→20:57)
[2018-03-06] MEDS: METOPROLOL 50 MG TAB PO ×2 (11:00→20:57)
[2018-03-06] MEDS: FERROUS SULFATE (EC) 325 MG TAB PO (11:00)
[2018-03-06] MEDS: FAMOTIDINE 20 MG TAB PO ×2 (11:00→20:57)
[2018-03-06] MEDS: FOLIC ACID 1 MG TAB PO (11:00)
[2018-03-06] MEDS: NITROGLYCERIN 0.2 MG/HR PATCH TRANSDERM (11:01)
[2018-03-06 11:03] LABS: ADD MAN DIFF? NO
[2018-03-06] MEDS: INSULIN ASPART [NOVOLOG] 3 ML PEN SC ×4 (11:03→20:58)
[2018-03-06] MEDS: HEPARIN 25000 UNITS/250 ML 250 ML IV (11:04)
[2018-03-06] MEDS: OXYCODONE/ACETAMINOPHEN (5/325) TAB PO (11:08)
[2018-03-06 11:09] LABS: PLATELET COUNT 56 10^3/UL (140-415)
[2018-03-06 11:10] LABS: ABNORMAL IP MESSAGE 1; BASOPHILS % 0.3 % (0.0-2.0); EOSINOPHILS # 0.4 10^3/ul (0.0-0.5); EOSINOPHILS % 3.8 % (0.0-7.0); HEMATOCRIT 27.9 % (42.0-52.0); HEMOGLOBIN 9.5 g/dl (14.0-18.0); LYMPHOCYTES # 0.9 10^3/ul (0.8-2.9); LYMPHOCYTES % 9.1 % (15.0-51.0); MEAN CORPUSCULAR HEMOGLOBIN 29.1 pg (29.0-33.0); MEAN CORPUSCULAR HGB CONC 34.1 g/dl (32.0-37.0); MEAN CORPUSCULAR VOLUME 85.6 fl (82.0-101.0); MEAN PLATELET VOLUME 10.9 fl (7.4-10.4); MONOCYTES % 10.2 % (0.0-11.0); NEUTROPHIL # 7.6 10^3/ul (1.6-7.5); PLATELET COUNT 53 10^3/UL (140-415); POSITIVE DIFF @See below; RED BLOOD COUNT 3.26 10^6/ul (4.70-6.10); RED CELL DISTRIBUTION WIDTH 13.2 % (11.5-14.5)
[2018-03-06 11:30] LABS: INR 1.84; PROTIME 21.7 Sec (11.9-14.9); PT RATIO 1.7
[2018-03-06 11:31] LABS: PARTIAL THROMBOPLASTIN TIME 36.6 Sec (25.0-35.0); PROTIME 22.2 Sec (11.9-14.9); PT RATIO 1.7
[2018-03-06 11:32] LABS: PARTIAL THROMBOPLASTIN TIME 35.9 Sec (25.0-35.0); THROMBIN TIME 21.3 SEC (13.8-19.1)
[2018-03-06 12:57] LABS: D-DIMER > 10000.00 ng/ml (<460)
[2018-03-06 13:07] LABS: FIBRIN SPLIT PRODUCT >10 and <40 ug/ml (<10)
[2018-03-06 16:49] LABS: PARTIAL THROMBOPLASTIN TIME 37.3 Sec (25.0-35.0)
[2018-03-06] MEDS: ASPIRIN 81 MG TAB PO (18:06)
[2018-03-06 20:46] LABS: PLATELET COUNT 52 10^3/UL (140-415)
[2018-03-06] MEDS: ATORVASTATIN 80 MG TAB PO (20:57)
[2018-03-06] MEDS: TAMSULOSIN (SR) 0.4 MG CAP PO (20:57)
[2018-03-06] MEDS: ALPRAZOLAM 0.25 MG TAB PO (22:48)
[2018-03-07 00:41] LABS: ADD MAN DIFF? NO
[2018-03-07 00:53] LABS: ABNORMAL IP MESSAGE 1; BASOPHILS % 0.3 % (0.0-2.0); EOSINOPHILS # 0.4 10^3/ul (0.0-0.5); HEMATOCRIT 29.7 % (42.0-52.0); LYMPHOCYTES # 0.9 10^3/ul (0.8-2.9); LYMPHOCYTES % 8.4 % (15.0-51.0); MEAN CORPUSCULAR HEMOGLOBIN 28.6 pg (29.0-33.0); MEAN CORPUSCULAR HGB CONC 33.7 g/dl (32.0-37.0); MEAN CORPUSCULAR VOLUME 84.9 fl (82.0-101.0); MEAN PLATELET VOLUME 11.5 fl (7.4-10.4); MONOCYTES % 9.5 % (0.0-11.0); NEUTROPHIL # 7.9 10^3/ul (1.6-7.5); NEUTROPHILS % 77.3 % (39.0-77.0); PLATELET COUNT 58 10^3/UL (140-415); POSITIVE DIFF @See below; RED CELL DISTRIBUTION WIDTH 13.2 % (11.5-14.5)
[2018-03-07 00:53] LABS: WHITE BLOOD COUNT 10.2 10^3/ul (4.8-10.8)
[2018-03-07] MEDS: ALBUTEROL/IPRATROPIUM (NEB) 3 ML AMP NEB ×2 (01:00→05:22)
[2018-03-07 01:06] LABS: INR 1.52; PROTIME 18.6 Sec (11.9-14.9); PT RATIO 1.5
[2018-03-07 01:07] LABS: ANION GAP 7 (8-16); BLOOD UREA NITROGEN 29 mg/dl (7-20); CALCIUM 9.1 mg/dl (8.4-10.2); CARBON DIOXIDE 31 mmol/L (21-31); CHLORIDE 99 mmol/L (97-110); CREATININE 1.22 mg/dl (0.61-1.24); GLUCOSE 112 mg/dl (70-220); POTASSIUM 4.3 mmol/L (3.5-5.1); SODIUM 133 mmol/L (135-144)
[2018-03-07 01:18] LABS: PARTIAL THROMBOPLASTIN TIME 44.3 Sec (25.0-35.0)
[2018-03-07 06:06] LABS: ADD MAN DIFF? NO
[2018-03-07 06:08] LABS: ABNORMAL IP MESSAGE 1; BASOPHILS % 0.3 % (0.0-2.0); EOSINOPHILS # 0.3 10^3/ul (0.0-0.5); EOSINOPHILS % 2.9 % (0.0-7.0); HEMATOCRIT 30.6 % (42.0-52.0); HEMOGLOBIN 10.4 g/dl (14.0-18.0); LYMPHOCYTES % 8.9 % (15.0-51.0); MEAN CORPUSCULAR HEMOGLOBIN 28.9 pg (29.0-33.0); MEAN PLATELET VOLUME 10.2 fl (7.4-10.4); MONOCYTE # 0.9 10^3/ul (0.3-0.9); MONOCYTES % 7.4 % (0.0-11.0); NEUTROPHIL # 9.2 10^3/ul (1.6-7.5); PLATELET COUNT 51 10^3/UL (140-415); POSITIVE DIFF @See below; RED CELL DISTRIBUTION WIDTH 13.1 % (11.5-14.5)
[2018-03-07 06:08] LABS: WHITE BLOOD COUNT 11.6 10^3/ul (4.8-10.8)
[2018-03-07 06:32] LABS: ANION GAP 10 (8-16); BLOOD UREA NITROGEN 29 mg/dl (7-20); CALCIUM 8.8 mg/dl (8.4-10.2); CARBON DIOXIDE 26 mmol/L (21-31); CHLORIDE 102 mmol/L (97-110); CREATININE 1.15 mg/dl (0.61-1.24); GLUCOSE 119 mg/dl (70-220); INR 1.67; PHOSPHORUS 3.6 mg/dl (2.5-4.9); POTASSIUM 4.2 mmol/L (3.5-5.1); PT RATIO 1.6; SODIUM 134 mmol/L (135-144)
[2018-03-07 07:23] LABS: PARTIAL THROMBOPLASTIN TIME 40.6 Sec (25.0-35.0)
[2018-03-07] MEDS: INSULIN ASPART [NOVOLOG] 3 ML PEN SC ×4 (07:35→21:00)
[2018-03-07] MEDS: DOCUSATE SODIUM 100 MG CAP PO ×3 (08:22→21:38)
[2018-03-07] MEDS: FERROUS SULFATE (EC) 325 MG TAB PO (08:22)
[2018-03-07] MEDS: FOLIC ACID 1 MG TAB PO (08:23)
[2018-03-07] MEDS ORDERED: ALBUTEROL/IPRATROPIUM (NEB) 3 ML AMP NEB (08:30)
[2018-03-07] MEDS: NITROGLYCERIN 0.2 MG/HR PATCH TRANSDERM (09:00)
[2018-03-07] MEDS: FUROSEMIDE 20 MG INJ IV (09:00)
[2018-03-07] MEDS: METOPROLOL 50 MG TAB PO ×3 (09:00→21:38)
[2018-03-07] MEDS: RANOLAZINE (SR) 500 MG TAB PO ×3 (09:00→21:37)
[2018-03-07] MEDS: FAMOTIDINE 20 MG TAB PO ×3 (09:00→21:38)
[2018-03-07 09:03] LABS: PLATELET COUNT 50 10^3/UL (140-415)
[2018-03-07] MEDS: ACETAMINOPHEN 325 MG TAB PO (13:00)
[2018-03-07] MEDS: traMADol 50 MG TAB PO (16:56)
[2018-03-07] MEDS: ATORVASTATIN 80 MG TAB PO ×2 (21:00→21:37)
[2018-03-07] MEDS: TAMSULOSIN (SR) 0.4 MG CAP PO ×2 (21:00→21:38)
[2018-03-07 21:41] LABS: PLATELET COUNT 77 10^3/UL (140-415)
[2018-03-07] MEDS: OXYCODONE/ACETAMINOPHEN (5/325) TAB PO (22:20)
[2018-03-08] MEDS: ONDANSETRON 4 MG INJ IV (05:45)
[2018-03-08] MEDS: INSULIN ASPART [NOVOLOG] 3 ML PEN SC ×4 (07:35→21:00)
[2018-03-08] MEDS: DOCUSATE SODIUM 100 MG CAP PO ×2 (09:00→21:00)
[2018-03-08] MEDS: NITROGLYCERIN 0.2 MG/HR PATCH TRANSDERM (09:47)
[2018-03-08] MEDS: FUROSEMIDE 20 MG INJ IV (09:47)
[2018-03-08 10:11] LABS: ADD MAN DIFF? NO
[2018-03-08 10:13] LABS: WHITE BLOOD COUNT 13.4 10^3/ul (4.8-10.8)
[2018-03-08 10:13] LABS: ABNORMAL IP MESSAGE 1; BASOPHILS % 0.2 % (0.0-2.0); EOSINOPHILS # 0.1 10^3/ul (0.0-0.5); EOSINOPHILS % 0.7 % (0.0-7.0); HEMATOCRIT 30.5 % (42.0-52.0); HEMOGLOBIN 10.4 g/dl (14.0-18.0); LYMPHOCYTES # 0.7 10^3/ul (0.8-2.9); LYMPHOCYTES % 5.4 % (15.0-51.0); MEAN CORPUSCULAR HGB CONC 34.1 g/dl (32.0-37.0); MEAN PLATELET VOLUME 10.2 fl (7.4-10.4); MONOCYTES % 7.1 % (0.0-11.0); NEUTROPHIL # 11.5 10^3/ul (1.6-7.5); NEUTROPHILS % 86.2 % (39.0-77.0); POSITIVE DIFF @See below; RED BLOOD COUNT 3.59 10^6/ul (4.70-6.10); RED CELL DISTRIBUTION WIDTH 13.3 % (11.5-14.5)
[2018-03-08] MEDS: DEXTROSE 5%-0.45% NACL 1,000 ML IV (10:21)
[2018-03-08 10:22] LABS: PLATELET COUNT 60 10^3/UL (140-415)
[2018-03-08 10:25] LABS: PLATELET COUNT 60 10^3/UL (140-415)
[2018-03-08] MEDS ORDERED: DEXTROSE 5%-0.45% NACL 500 ML IV (10:30)
[2018-03-08 10:39] LABS: INR 1.73; PROTIME 20.6 Sec (11.9-14.9); PT RATIO 1.6
[2018-03-08] MEDS: RANOLAZINE (SR) 500 MG TAB PO ×2 (12:43→21:00)
[2018-03-08] MEDS: FOLIC ACID 1 MG TAB PO (12:43)
[2018-03-08] MEDS: FAMOTIDINE 20 MG TAB PO ×2 (12:43→21:00)
[2018-03-08] MEDS: METOPROLOL 50 MG TAB PO ×2 (12:43→21:00)
[2018-03-08] MEDS: FERROUS SULFATE (EC) 325 MG TAB PO (12:44)
[2018-03-08 17:11] LABS: PLATELET COUNT 87 10^3/UL (140-415)
[2018-03-08] MEDS: ATORVASTATIN 80 MG TAB PO (21:00)
[2018-03-08] MEDS: TAMSULOSIN (SR) 0.4 MG CAP PO (21:00)
[2018-03-08 21:16] LABS: PLATELET COUNT 88 10^3/UL (140-415)
[2018-03-09 05:04] LABS: ADD MAN DIFF? NO
[2018-03-09 05:07] LABS: WHITE BLOOD COUNT 10.8 10^3/ul (4.8-10.8)
[2018-03-09 05:07] LABS: ABNORMAL IP MESSAGE 1; BASOPHILS % 0.3 % (0.0-2.0); EOSINOPHILS # 0.2 10^3/ul (0.0-0.5); EOSINOPHILS % 1.8 % (0.0-7.0); HEMATOCRIT 27.4 % (42.0-52.0); HEMOGLOBIN 9.1 g/dl (14.0-18.0); LYMPHOCYTES # 1.1 10^3/ul (0.8-2.9); LYMPHOCYTES % 10.1 % (15.0-51.0); MEAN CORPUSCULAR HEMOGLOBIN 28.3 pg (29.0-33.0); MEAN CORPUSCULAR HGB CONC 33.2 g/dl (32.0-37.0); MEAN CORPUSCULAR VOLUME 85.4 fl (82.0-101.0); MEAN PLATELET VOLUME 10.6 fl (7.4-10.4); MONOCYTES % 9.2 % (0.0-11.0); NEUTROPHIL # 8.5 10^3/ul (1.6-7.5); NEUTROPHILS % 78.1 % (39.0-77.0); PLATELET COUNT 73 10^3/UL (140-415); POSITIVE DIFF @See below; RED BLOOD COUNT 3.21 10^6/ul (4.70-6.10); RED CELL DISTRIBUTION WIDTH 13.3 % (11.5-14.5)
[2018-03-09 05:36] LABS: ANION GAP 14 (8-16); BLOOD UREA NITROGEN 34 mg/dl (7-20); CALCIUM 8.7 mg/dl (8.4-10.2); CARBON DIOXIDE 29 mmol/L (21-31); CHLORIDE 102 mmol/L (97-110); CREATININE 1.39 mg/dl (0.61-1.24); GLUCOSE 139 mg/dl (70-220); POTASSIUM 3.7 mmol/L (3.5-5.1); SODIUM 141 mmol/L (135-144)
[2018-03-09 05:38] LABS: MAGNESIUM 2.2 mg/dl (1.7-2.5)
[2018-03-09 05:38] LABS: PHOSPHORUS 3.7 mg/dl (2.5-4.9)
[2018-03-09] MEDS: INSULIN ASPART [NOVOLOG] 3 ML PEN SC ×4 (07:35→21:00)
[2018-03-09] MEDS: PHYTONADIONE 5 MG in DEXTROSE 5% 50 ML IVPB ×2 (08:21→17:08)
[2018-03-09] MEDS: DOCUSATE SODIUM 100 MG CAP PO ×2 (08:25→21:14)
[2018-03-09 09:54] LABS: TYPE AND SCREEN 1 1
[2018-03-09] MEDS: FAMOTIDINE 20 MG TAB PO ×2 (10:25→21:14)
[2018-03-09] MEDS: FERROUS SULFATE (EC) 325 MG TAB PO (10:25)
[2018-03-09] MEDS: FOLIC ACID 1 MG TAB PO (10:25)
[2018-03-09] MEDS: METOPROLOL 50 MG TAB PO ×2 (10:25→21:14)
[2018-03-09] MEDS: RANOLAZINE (SR) 500 MG TAB PO ×2 (10:25→21:13)
[2018-03-09] MEDS: NITROGLYCERIN 0.2 MG/HR PATCH TRANSDERM (10:26)
[2018-03-09] MEDS: traMADol 50 MG TAB PO ×2 (10:26→19:15)
[2018-03-09] MEDS: DEXTROSE 5%-0.45% NACL 1,000 ML IV (10:26)
[2018-03-09] MEDS: ALPRAZOLAM 0.25 MG TAB PO (10:26)
[2018-03-09 11:59] LABS: INR 1.51; PROTIME 18.5 Sec (11.9-14.9); PT RATIO 1.4
[2018-03-09 15:23] LABS: PLATELET COUNT 97 10^3/UL (140-415)
[2018-03-09 15:55] LABS: INR 1.52; PROTIME 18.6 Sec (11.9-14.9); PT RATIO 1.5
[2018-03-09 21:11] LABS: TYPE AND SCREEN 1
[2018-03-09] MEDS: TAMSULOSIN (SR) 0.4 MG CAP PO (21:14)
[2018-03-09] MEDS: ATORVASTATIN 80 MG TAB PO (21:14)
[2018-03-10 06:06] LABS: ADD MAN DIFF? NO
[2018-03-10 06:08] LABS: INR 1.59; PARTIAL THROMBOPLASTIN TIME 50.3 Sec (25.0-35.0); PROTIME 19.3 Sec (11.9-14.9); PT RATIO 1.5
[2018-03-10 06:17] LABS: WHITE BLOOD COUNT 11.9 10^3/ul (4.8-10.8)
[2018-03-10 06:17] LABS: BASOPHILS % 0.3 % (0.0-2.0); EOSINOPHILS # 0.2 10^3/ul (0.0-0.5); EOSINOPHILS % 1.6 % (0.0-7.0); HEMATOCRIT 25.3 % (42.0-52.0); HEMOGLOBIN 8.5 g/dl (14.0-18.0); LYMPHOCYTES # 1.2 10^3/ul (0.8-2.9); LYMPHOCYTES % 9.7 % (15.0-51.0); MEAN CORPUSCULAR HEMOGLOBIN 28.9 pg (29.0-33.0); MEAN CORPUSCULAR HGB CONC 33.6 g/dl (32.0-37.0); MEAN CORPUSCULAR VOLUME 86.1 fl (82.0-101.0); MEAN PLATELET VOLUME 10.5 fl (7.4-10.4); MONOCYTE # 1.2 10^3/ul (0.3-0.9); MONOCYTES % 9.7 % (0.0-11.0); NEUTROPHIL # 9.3 10^3/ul (1.6-7.5); NEUTROPHILS % 78.1 % (39.0-77.0); PLATELET COUNT 130 10^3/UL (140-415); RED BLOOD COUNT 2.94 10^6/ul (4.70-6.10); RED CELL DISTRIBUTION WIDTH 13.9 % (11.5-14.5)
[2018-03-10 06:23] LABS: ANION GAP 12 (8-16); BLOOD UREA NITROGEN 36 mg/dl (7-20); CARBON DIOXIDE 32 mmol/L (21-31); CHLORIDE 103 mmol/L (97-110); CREATININE 1.33 mg/dl (0.61-1.24); GLUCOSE 147 mg/dl (70-220); MAGNESIUM 2.4 mg/dl (1.7-2.5); PHOSPHORUS 3.4 mg/dl (2.5-4.9); SODIUM 143 mmol/L (135-144)
[2018-03-10] MEDS: ACETAMINOPHEN 325 MG TAB PO (08:08)
[2018-03-10] MEDS: NITROGLYCERIN 0.2 MG/HR PATCH TRANSDERM (08:08)
[2018-03-10] MEDS: FERROUS SULFATE (EC) 325 MG TAB PO (08:09)
[2018-03-10] MEDS: ALPRAZOLAM 0.25 MG TAB PO (08:09)
[2018-03-10] MEDS: FOLIC ACID 1 MG TAB PO (08:09)
[2018-03-10] MEDS: METOPROLOL 50 MG TAB PO (08:09)
[2018-03-10] MEDS: FAMOTIDINE 20 MG TAB PO (08:09)
[2018-03-10] MEDS: RANOLAZINE (SR) 500 MG TAB PO (08:09)
[2018-03-10] MEDS: DOCUSATE SODIUM 100 MG CAP PO (08:10)
[2018-03-10] MEDS: DEXTROSE 5%-0.45% NACL 1,000 ML IV (08:10)
[2018-03-10] MEDS: INSULIN ASPART [NOVOLOG] 3 ML PEN SC ×2 (08:14→11:41)
[2018-03-10 11:12] LABS: TYPE AND SCREEN 1 1
[2018-03-10] MEDS: FUROSEMIDE 20 MG INJ IV (12:02)
== END 2018-03-10 12:30 | disposition short-term general hospital (02) | DRG 64 ==
LOC: ICU 03-05 09:41 → E/R 09:11 → ICU 03-05 09:42 → TEL 02-28 04:09 → PP2 14:16 → TEL 21:53 → PP2 02-27 22:42 → TEL 22:05
PROC: B246ZZ4 Ultrasonography of Right and Left Heart, Transesophageal (ICD-10-PCS; principal; 2018-03-04)
PROC: 30233K1 Transfusion of Nonautologous Frozen Plasma into Peripheral Vein, Percutaneous Approach (ICD-10-PCS; 2018-03-07)
PROC: 30233R1 Transfusion of Nonautologous Platelets into Peripheral Vein, Percutaneous Approach (ICD-10-PCS; 2018-03-07)
DX: I63.432 Cerebral infarction due to embolism of left posterior cerebral artery (principal); J18.9 Pneumonia, unspecified organism; I61.8 Other nontraumatic intracerebral hemorrhage; I21.4 Non-ST elevation (NSTEMI) myocardial infarction; I50.41 Acute combined systolic (congestive) and diastolic (congestive) heart failure; E87.1 Hypo-osmolality and hyponatremia; C77.0 Secondary and unspecified malignant neoplasm of lymph nodes of head, face and neck; C34.01 Malignant neoplasm of right main bronchus; D68.9 Coagulation defect, unspecified; R44.3 Hallucinations, unspecified; R04.2 Hemoptysis; G89.3 Neoplasm related pain (acute) (chronic); H53.8 Other visual disturbances; E11.9 Type 2 diabetes mellitus without complications; D64.9 Anemia, unspecified; J44.9 Chronic obstructive pulmonary disease, unspecified; Z87.891 Personal history of nicotine dependence; R59.1 Generalized enlarged lymph nodes; Z95.5 Presence of coronary angioplasty implant and graft; I51.3 Intracardiac thrombosis, not elsewhere classified; D69.6 Thrombocytopenia, unspecified; R40.2433 Glasgow coma scale score 3-8, at hospital admission; I11.0 Hypertensive heart disease with heart failure
CPT/HCPCS: 36415; 36430; 70450; 70545; 70551; 71045; 71260; 80048; 80053; 80061; 82533; 82550; 82553; 82962; 83036; 83615; 83735; 83880; 84100; 84439; 84443; 84484; 85014; 85018; 85025; 85049; 85362; 85378; 85384; 85610; 85670; 85730; 86644; 86850; 86900; 86901; 86945; 87040; 87081; 92526; 92610; 93005; 93306; 93312; 94640; 94664; 96374; 96375; 99217; 99285-25; G0378